=== PATIENT | female | born 1990 | race Two or more races ===

== ENCOUNTER 2017-10-04 15:01 | Emergency (ER) | payer SELFPAY ==
[~2017-10-04] VITALS: Ht 170.2 cm; Wt 87.5 kg
[2017-10-04 15:04] VITALS: BP 140/82
[2017-10-04] MEDS ORDERED: ACETAMINOPHEN 325 MG TABLET ONE (16:22)
[2017-10-04] MEDS: ACETAMINOPHEN 325 MG TABLET PO ONE (16:27)
== END 2017-10-04 16:39 | disposition home or self-care (01) ==
LOC: ER 15:04
DX: S09.90XA Unspecified injury of head, initial encounter (principal); V43.52XA Car driver injured in collision with other type car in traffic accident, initial encounter; Y93.89 Activity, other specified; Y92.410 Unspecified street and highway as the place of occurrence of the external cause; Y99.8 Other external cause status
CPT/HCPCS: A4606; Z7610